=== PATIENT | female | born 1955 | race Caucasian/White ===

== ENCOUNTER 2018-09-18 20:47 | Emergency (ER) | payer OTHER ==
[2018-09-18] MEDS ORDERED: Ciprofloxacin 500 MG Tab PO ONE (21:47)
[2018-09-18] MEDS ORDERED: Phenazopyridine 95 MG Tab PO ONE (21:48)
--- NOTE | 2018-09-19 07:37 | EDM.PDOC ---
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 She had lithotripsy followed by stent placement approximately month ago. She has intermittent flank discomfort and has run out of her prescriptions for ciprofloxacin and also Pyridium (over-the- counter). he stent is to be removed 09/19/18 but her urologist on vacation so dense removal has been rescheduled for 09/26/18 at [facility]. She is with without fever, no longer has left flank pain, now has annoying 5/10 residual left lower quadrant abdominal discomfort and suprapubic discomfort. She is annoyed that she won't be getting her stent removed tomorrow, September 19. She has run out of Pyridium and Cipro and would like those prescriptions refilled until stent removed 09/26/18 she is not really requesting any pain pills has no fever or nausea or vomiting. - Related Data Allergies Allergy/AdvReac Type Severity Reaction Status Date / Time No Known Allergies Allergy Verified 09/18/18 21:01 Home Meds: Home Meds Ciprofloxacin [Cipro] 500 mg PO ASDIRECTED #14 ml 09/18/18 [Rx] FLUoxetine [PROzac] 40 mg PO DAILY 09/18/18 [History] Levothyroxine 112 mcg PO ACBREAKFAST 09/18/18 [History] Oxybutynin 10 mg PO BID 09/18/18 [History] Phenazopyridine HCl [Pyridium] 200 mg PO TID PRN #10 tablet 09/18/18 [Rx] Past Medical History Genitourinary History: Reports: UTI, Recurrent, Other (See Below) Other Genitourinary History: kidney stones Endocrine/Metabolic History: Reports: Hypothyroidism Social & Family History - Family History Family Medical History: Noncontributory - Tobacco Use Smoking Status *Q: Former Smoker Used Tobacco, but Quit: Yes Month/Year Tobacco Last Used: 240 - Caffeine Use Caffeine Use: Reports: Coffee - Recreational Drug Use Recreational Drug Use: No ED ROS GENERAL - Review of Systems Review Of Systems: ROS reveals no pertinent complaints other than HPI. : Reports: Other (She uses oxybutynin for bladder spasm) Musculoskeletal: Reports: Other (Left rotator cuff pain 1 year self managed physical therapy (she is a physical therapist). And her shoulders getting better ) ED EXAM, RENAL/ - Physical Exam Exam: See Below Text/Narrative:: Wasn't awake woman in minimal distress but uncomfortable over the presence of her stent and discouraged that she couldn't have her stent removed tomorrow Exam Limited By: No Limitations General Appearance: Alert, Mild Distress Eye Exam: Bilateral Eye: Normal Inspection Ears: Normal External Exam, Normal Canal, Normal TMs Nose: Normal Inspection, Normal Mucosa, No Blood Throat/Mouth: Normal Inspection, Normal Lips, Normal Teeth, Normal Gums, Normal Oropharynx, Normal Voice Head: Atraumatic, Normocephalic Neck: Normal Inspection, Supple, Non-Tender, Full Range of Motion Respiratory/Chest: No Respiratory Distress, Lungs Clear, Normal Breath Sounds, No Accessory Muscle Use, Chest Non-Tender Cardiovascular: Normal Peripheral Pulses, Regular Rate, Rhythm, No Edema, No Gallop, No JVD, No Murmur, No Rub GI/Abdominal: Normal Bowel Sounds, Soft, No Organomegaly, No Distention, No Abnormal Bruit, No Mass, Other (Mild left lower quadrant guarding no rebound no heel tap rebound) (Female) Exam: Deferred Rectal (Female) Exam: Deferred Extremities: Normal Inspection, Normal Range of Motion, Non-Tender, No Pedal Edema, Normal Capillary Refill Neurological: Alert, Oriented, CN II-XII Intact, Normal Cognition, Normal Gait, Normal Reflexes, No Motor/Sensory Deficits, Other Psychiatric: Normal Affect, Normal Mood Skin Exam: Warm, Dry, Intact, Normal Color Lymphatic: No Adenopathy Course - Vital Signs Last Recorded V/S: Last Vital Signs Temp 36.6 C 09/18/18 20:47 Pulse 74 09/18/18 20:47 Resp 17 09/18/18 20:47 BP 114/57 L 09/18/18 20:47 Pulse Ox 99 09/18/18 20:47 - Orders/Labs/Meds Labs: Laboratory Tests 09/18/18 09/18/18 09/18/18 Range/Units 21:08 21:50 21:50 WBC 5.8 (4.5-12.0) X10-3/uL RBC 4.16 (3.23-5.20) x10(6)uL Hgb 12.2 (11.5-15.5) g/dL Hct 35.9 (30.0-51.3) % MCV 86.3 (80-96) fL MCH 29.3 (27.7-33.6) pg MCHC 33.9 (32.2-35.4) g/dL RDW 13.8 (11.5-15.5) % Plt Count 197 (125-369) X10(3)uL MPV 8.9 (7.4-10.4) fL Neut % (Auto) 53.2 (46-82) % Lymph % (Auto) 31.2 (13-37) % [place] % (Auto) 12.1 H (4-12) % Eos % (Auto) 3 (1.0-5.0) % Baso % (Auto) 1 (0-2) % Neut # (Auto) 3.1 (1.6-8.3) # Lymph # (Auto) 1.8 (0.6-5.0) # [place] # (Auto) 0.7 (0.0-1.3) # Eos # (Auto) 0.2 (0.0-0.8) # Baso # (Auto) 0.0 (0.0-0.2) # Sodium 140 (135-145) mmol/L Potassium 3.6 (3.5-5.3) mmol/L Chloride 105 (100-110) mmol/L Carbon Dioxide 25 (21-32) mmol/L BUN 15 (7-18) mg/dL Creatinine 0.7 (0.55-1.02) mg/dL Est Cr Clr Drug Dosing 77.01 mL/min Estimated GFR (MDRD) > 60 (>60) BUN/Creatinine Ratio 21.4 H (9-20) Glucose 91 (80-116) mg/dL Calcium 8.6 (8.6-10.2) mg/dL Urine Color Yellow (YELLOW) Urine Appearance Slightly cloudy (CLEAR) Urine pH 6.0 (5.0-6.5) Ur Specific [place] 1.025 (1.010-1.025) Urine Protein 30 H (NEGATIVE) mg/dL Urine Glucose (UA) Normal (NORMAL) mg/dL Urine Ketones Negative (NEGATIVE) mg/dL Urine Occult Blood Large H (NEGATIVE) Urine Nitrite Negative (NEGATIVE) Urine Bilirubin Negative (NEGATIVE) Urine Urobilinogen Normal (NEGATIVE) mg/dL Ur Leukocyte Esterase Small H (NEGATIVE) Urine RBC 40-50 H (0-5) Urine WBC 5-10 H (0-5) Ur Squamous Epith Cells Occasional (NS,R,O) Urine Bacteria Few H (NS) Meds: Medications Discontinued Medications Generic Name Dose Route Start Last Admin Trade Name Freq PRN Reason Stop Dose Admin Ciprofloxacin 500 mg 09/18/18 21:47 09/18/18 21:53 Ciprofloxacin Hcl PO 09/18/18 21:48 500 mg ONETIME ONE Administration Phenazopyridine HCl 95 mg 09/18/18 21:48 09/18/18 21:53 Urinary Pain Relief PO 09/18/18 21:49 95 mg ONETIME ONE Administration Departure - Departure Time of Disposition: 21:15 (Left flank pain is almost gone patient most likely has passed a stone down to the lower [facility] as she has left lower quadrant abdominal discomfort. Sign of fever or vomiting. Her pain is mildly stable. She still has discomfort of a stent. And like replacement of her Cipro and Pyridium so she gets through another clinic until she has the stent removed and 09/26) Disposition: Home, Self-Care 01 Condition: Good Clinical Impression: Obstruction of left ureteropelvic junction (UPJ) due to stone, Obesity (BMI 35.0-39.9 without comorbidity) Abdominal pain Qualifiers: Abdominal location: left lower quadrant Qualified Code(s): R10.32 - Left lower quadrant pain - Discharge Information *PRESCRIPTION DRUG MONITORING PROGRAM REVIEWED*: Not Applicable *COPY OF PRESCRIPTION DRUG MONITORING REPORT IN PATIENT JIMMIE: Not Applicable Prescriptions: Ciprofloxacin [Cipro] 500 mg PO ASDIRECTED #14 ml Phenazopyridine HCl [Pyridium] 200 mg PO TID PRN #10 tablet PRN Reason: Dysuria Instructions: Urinary Tract Infection, Adult Referrals: Romulo Brown MD [Primary Care Provider] - Forms: ED Department Discharge Additional Instructions: History of a left renal stone with stents since July. Because you ran out of her Cipro I've refilled prescription so have enough medication until you see your doctor. I have prescribed pyridium to decrease burning on urination. You have a risk of having pills in your body during the "shockwave therapy"( lithotripsy) and those pills could be shattered if they are not completely absorbed. Consequently attention to your doctor's order about restricting for 1 week the use of any medications that are more than ones he has prescribed for a week before the procedure.
== END 2018-09-18 22:03 | disposition home or self-care (01) ==
LOC: FB.ED 20:47
DX: N20.1 Calculus of ureter (principal); E66.9 Obesity, unspecified; Z68.35 Body mass index [BMI] 35.0-35.9, adult; E03.9 Hypothyroidism, unspecified; Z87.891 Personal history of nicotine dependence
CPT/HCPCS: 36415; 80048; 81001; 85025; 99283; A9270-GY

== ENCOUNTER 2021-03-07 13:47 | Emergency (ER) | payer MEDICARE, BC ==
[2021-03-07] MEDS ORDERED: Acetaminophen/oxyCODONE 325-5 MG Tab PO ONE (13:48)
[2021-03-07] MEDS ORDERED: Ondansetron 4 MG Tab.DIS PO ONE (13:48)
--- NOTE | 2021-03-07 14:13 | EDM.PDOC ---
ED HPI GENERAL MEDICAL PROBLEM - General Stated Complaint: KIDNEY STONE PAIN Time Seen by Provider: 03/07/21 14:05 Source of Information: Reports: Patient History Limitations: Reports: No Limitations - History of Present Illness INITIAL COMMENTS - FREE TEXT/NARRATIVE: 65-year-old female who reports on Tuesday begin to have pain in her right mid back and her right flank that was a sharp pain and seemed to come and go. At times, the pain would completely go away and L1 night she was able sleep through the entire night. Beginning at 4 AM this morning, the pain has come back and it really has not gone away but has had a waxing and waning level of worsening through the day with pain seeming to go from her right mid back to her right flank. It is a sharp and stabbing type pain. She rates that pain as a 10/10 now. She has had no dysuria or hematuria. She has had some nausea but no vomiting. She has tried some home remedies with olive oil lemon juice with no effect. She does have a previous history of right-sided kidney stone that needed lithotripsy and stent placement in the past. She has had no fevers or chills. No weakness or dizziness. She really has not eaten or drank very much today at all. She presents to the emergency department via private vehicle with her . There are no other associated signs or symptoms. There are no other modifying factors. Onset: Other (03/03/2021) Duration: Getting Worse Location: Reports: Abdomen (Right flank), Back Quality: Reports: Sharp, Stabbing Severity: Moderate (to severe) Improves with: Reports: None Worsens with: Reports: Other (Palpation, somewhat) Context: Reports: Other (As above) Associated Symptoms: Reports: No Other Symptoms Treatments [employer]: Reports: Home Treatments Right Flank Pain Score (Numeric/FACES): 10 - Related Data Allergies Allergy/AdvReac Type Severity Reaction Status Date / Time No Known Allergies Allergy Verified 09/18/18 21:01 Home Meds: Home Meds Ciprofloxacin [Cipro] 500 mg PO ASDIRECTED #14 ml 09/18/18 [Rx] FLUoxetine [PROzac] 40 mg PO DAILY 09/18/18 [History] Levothyroxine 112 mcg PO ACBREAKFAST 09/18/18 [History] Oxybutynin 10 mg PO BID 09/18/18 [History] Phenazopyridine HCl [Pyridium] 200 mg PO TID PRN #10 tablet 09/18/18 [Rx] Acetaminophen/oxyCODONE [Percocet 325-5 MG] 1 - 2 tab PO Q6H PRN #8 tab 03/07/21 [Rx] Ondansetron [Zofran ODT] 4 mg PO Q6H PRN #8 tab.dis 03/07/21 [Rx] Tamsulosin [Tamsulosin 24 Hr] 0.4 mg PO BEDTIME #7 cap.er 03/07/21 [Rx] Past Medical History Gastrointestinal History: Reports: GERD Genitourinary History: Reports: Renal Calculus, UTI, Recurrent Endocrine/Metabolic History: Reports: Hypothyroidism - Past Surgical History Female Surgical History: Reports: Oophorectomy Male Surgical History: Reports: Lithotripsy ([facility]) Endocrine Surgical History: Reports: Thyroidectomy Musculoskeletal Surgical History: Reports: Shoulder Surgery (Left rotator cuff surgery) Social & Family History - Tobacco Use Tobacco Use Status *Q: Unknown Ever Used Tobacco (Nonsmoker) - Caffeine Use Caffeine Use: Reports: Coffee - Alcohol Use Alcohol Use History: Yes Alcohol Use Frequency: Socially - Living Situation & Occupation Living situation: Reports: ED ROS GENERAL - Review of Systems Review Of Systems: See Below Constitutional: Denies: Fever, Chills HEENT: Denies: Throat Pain, Throat Swelling Respiratory: Denies: Shortness of Breath, Cough Cardiovascular: Denies: Chest Pain, Palpitations GI/Abdominal: Reports: Abdominal Pain, Nausea. Denies: Vomiting : Reports: Flank Pain. Denies: Dysuria, Hematuria Musculoskeletal: Reports: Back Pain. Denies: Neck Pain Skin: Denies: Diaphoresis, Rash Neurological: Denies: Dizziness, Headache Psychiatric: Denies: Anxiety Hematologic/Lymphatic: Denies: Easy Bleeding, Easy Bruising ED EXAM, RENAL/ - Physical Exam Exam: See Below Exam Limited By: No Limitations General Appearance: Alert, WD/WN, Moderate Distress (Ears in pain. Nontoxic appearing.) Eye Exam: Bilateral Eye: EOMI, Normal Inspection, PERRL Ears: Hearing Grossly Normal, Other (Keloid on the left pinna) Course - Vital Signs Last Recorded V/S: Last Vital Signs Temp 36.5 C 03/07/21 13:47 Pulse 93 03/07/21 13:47 Resp 20 03/07/21 13:47 BP 138/72 03/07/21 13:47 Pulse Ox 98 03/07/21 13:47 - Orders/Labs/Meds Orders: Active Orders 24 hr Category Date Time Status Abdomen Pelvis wo Cont [CT] Stat Exams 03/07/21 14:25 Taken Peripheral IV Insertion Adult [OM.PC] Routine Oth 03/07/21 14:25 Ordered Labs: Laboratory Tests 03/07/21 03/07/21 03/07/21 Range/Units 14:36 14:50 14:50 WBC 10.3 (3.0-10.3) x10-3/uL RBC 5.08 (3.60-5.20) x10(6)uL Hgb 14.7 (11.4-15.5) g/dL Hct 43.3 (34.2-48.2) % MCV 85.2 (76.7-100.5) fL MCH 29.0 (23.9-33.9) pg MCHC 34.0 (31.9-34.8) g/dL RDW 13.8 (12.3-16.5) % Plt Count 196 (151-488) x10(3)uL MPV 8.2 (7.1-12.4) fL Neut % (Auto) 70.4 (30.8-76.2) % Lymph % (Auto) 17.6 L (18.4-52.1) % [place] % (Auto) 9.6 (4.4-15.7) % Eos % (Auto) 1.7 (0.6-8.1) % Baso % (Auto) 0.7 (0.2-1.5) % Neut # (Auto) 7.2 H (1.5-6.3) x10-3/uL Lymph # (Auto) 1.8 (1.0-4.4) x10-3/uL [place] # (Auto) 1.0 (0.3-1.0) x10-3/uL Eos # (Auto) 0.2 (0.0-0.8) x10-3/uL Baso # (Auto) 0.1 (0.0-0.1) x10-3/uL Sodium 145 (135-145) mmol/L Potassium 4.2 (3.5-5.3) mmol/L Chloride 107 (100-110) mmol/L Carbon Dioxide 28 (21-32) mmol/L BUN 20 H (7-18) mg/dL Creatinine 1.1 H (0.55-1.02) mg/dL Est Cr Clr Drug Dosing TNP Estimated GFR (MDRD) 50 L (>60) BUN/Creatinine Ratio 18.2 (9-20) Glucose 93 (80-116) mg/dL Calcium 9.1 (8.6-10.2) mg/dL C-Reactive Protein (0.5-0.9) mg/dL Urine Color Yellow (YELLOW) Urine Appearance Slightly cloudy (CLEAR) Urine pH 5.0 (5.0-6.5) Ur Specific [place] 1.030 H (1.010-1.025) Urine Protein Negative (NEGATIVE) mg/dL Urine Glucose (UA) Normal (NORMAL) mg/dL Urine Ketones 15 H (NEGATIVE) mg/dL Urine Occult Blood Trace (NEGATIVE) Urine Nitrite Negative (NEGATIVE) Urine Bilirubin Small H (NEGATIVE) Urine Urobilinogen Normal (NEGATIVE) mg/dL Ur Leukocyte Esterase Negative (NEGATIVE) Urine RBC 0-5 (0-5) Urine WBC 0-5 (0-5) Ur Squamous Epith Cells Moderate H (NS,R,O) Calcium Oxalate Crystal Moderate H (NS) Urine Bacteria Few H (NS) 03/07/21 Range/Units 14:50 WBC (3.0-10.3) x10-3/uL RBC (3.60-5.20) x10(6)uL Hgb (11.4-15.5) g/dL Hct (34.2-48.2) % MCV (76.7-100.5) fL MCH (23.9-33.9) pg MCHC (31.9-34.8) g/dL RDW (12.3-16.5) % Plt Count (151-488) x10(3)uL MPV (7.1-12.4) fL Neut % (Auto) (30.8-76.2) % Lymph % (Auto) (18.4-52.1) % [place] % (Auto) (4.4-15.7) % Eos % (Auto) (0.6-8.1) % Baso % (Auto) (0.2-1.5) % Neut # (Auto) (1.5-6.3) x10-3/uL Lymph # (Auto) (1.0-4.4) x10-3/uL [place] # (Auto) (0.3-1.0) x10-3/uL Eos # (Auto) (0.0-0.8) x10-3/uL Baso # (Auto) (0.0-0.1) x10-3/uL Sodium (135-145) mmol/L Potassium (3.5-5.3) mmol/L Chloride (100-110) mmol/L Carbon Dioxide (21-32) mmol/L BUN (7-18) mg/dL Creatinine (0.55-1.02) mg/dL Est Cr Clr Drug Dosing Estimated GFR (MDRD) (>60) BUN/Creatinine Ratio (9-20) Glucose (80-116) mg/dL Calcium (8.6-10.2) mg/dL C-Reactive Protein < 0.2 L (0.5-0.9) mg/dL Urine Color (YELLOW) Urine Appearance (CLEAR) Urine pH (5.0-6.5) Ur Specific [place] (1.010-1.025) Urine Protein (NEGATIVE) mg/dL Urine Glucose (UA) (NORMAL) mg/dL Urine Ketones (NEGATIVE) mg/dL Urine Occult Blood (NEGATIVE) Urine Nitrite (NEGATIVE) Urine Bilirubin (NEGATIVE) Urine Urobilinogen (NEGATIVE) mg/dL Ur Leukocyte Esterase (NEGATIVE) Urine RBC (0-5) Urine WBC (0-5) Ur Squamous Epith Cells (NS,R,O) Calcium Oxalate Crystal (NS) Urine Bacteria (NS) Meds: Medications Discontinued Medications Generic Name Dose Route Start Last Admin Trade Name Freq PRN Reason Stop Dose Admin Sodium Chloride 1,000 mls @ 999 mls/hr 03/07/21 14:27 03/07/21 15:13 Normal Saline IV 03/07/21 15:27 999 mls/hr .BOLUS ONE Administration Ketorolac Tromethamine 30 mg 03/07/21 16:02 03/07/21 16:11 Ketorolac 30 Mg/Ml Sdv IVPUSH 03/07/21 16:03 30 mg ONETIME ONE Administration Morphine Sulfate 4 mg 03/07/21 14:27 03/07/21 15:19 Morphine 4 Mg/Ml Vial IVPUSH 03/07/21 14:28 4 mg ONETIME ONE Administration Ondansetron HCl 4 mg 03/07/21 14:27 03/07/21 15:13 Ondansetron 4 Mg/2 Ml Sdv IVPUSH 03/07/21 14:28 4 mg ONETIME ONE Administration Sodium Chloride 10 ml 03/07/21 14:25 Sodium Chloride 0.9% 10 Ml Syringe FLUSH ASDIRECTED PRN Keep Vein Open Tamsulosin HCl 0.4 mg 03/07/21 16:02 03/07/21 16:11 Tamsulosin 0.4 Mg Cap.Er PO 03/07/21 16:03 0.4 mg ONETIME ONE Administration - Radiology Interpretation Free Text/Narrative:: CT scan of abdomen and pelvis without IV contrast showed a 2 mm calculus in the right distal ureter with mild hydronephrosis. There is a punctate nonobstructing calculus inside the right kidney. The liver. There are small hypodense lesions in the liver that are unchanged from August 2018. She was per the [facility] L radiologist. - Re-Assessments/Exams Free Text/Narrative Re-Assessment/Exam: 03/07/21 15:15: One plus of count was 10.3. Hemoglobin is 14.7. Platelet count is normal. Sodium is 145. Potassium is 4.2. Bicarbonate was 28. BUN is 20 and creatinine is 1.1. Glucose is normal. A CRP was normal. A urinalysis had 0-5 rbc's properdin filled and did not show any evidence of infection. The patient is back from CT and we are awaiting the results. She has just received her pain medication and is receiving her IV fluids. 03/07/21 16:00: The CT scan of her abdomen and pelvis showed a 2 mm calculus in the right distal ureter with mild hydronephrosis. Patient's pain is now down to a 5/10. She states is down to a dull ache and throbbing. No nausea. No vomiting. She states she actually feels hungry now. The plan will be to have her strain of her urine to monitor for stone passage. I will also place the patient on Flomax daily and give her her first dose now. I will also give her prescriptions of Percocet and Zofran that she can use for pain and nausea. She should follow- up with her primary provider. I discussed all of this with the patient and with her and they are couple with the plan for discharge. Departure - Departure Time of Disposition: 16:30 Disposition: Home, Self-Care 01 Condition: Good Clinical Impression: Renal colic on right side, Right distal ureteral calculus - Discharge Information Prescriptions: Tamsulosin [Tamsulosin 24 Hr] 0.4 mg PO BEDTIME #7 cap.er Acetaminophen/oxyCODONE [Percocet 325-5 MG] 1 - 2 tab PO Q6H PRN #8 tab PRN Reason: Moderate to severe pain Ondansetron [Zofran ODT] 4 mg PO Q6H PRN #8 tab.dis PRN Reason: Nausea/Vomiting Instructions: Renal Colic, [id number], Kidney Stones, [id number] Referrals: Romulo Brown MD [Physician] - Forms: ED Department Discharge Additional Instructions: You have a kidney stone in your right distal ureter. It is only 2 mm in size. This is something that should pass on its own. He'll also have a kidney stone within your right kidney. This should not cause any problems at this time. He also have some lesions on your liver that were present in August 2018 and have not changed since that time. Your urine showed no evidence of infection. You need to increase your fluid intake. Strain all of your urine to look for passage of the kidney stone. You will need to follow-up with your primary provider next week for recheck. Back to the emergency department for marked increase in pain, unrelenting vomiting, fever, inability to pass your urine or any other concerning signs or symptoms. Sepsis Event Note (ED) - Focused Exam Vital Signs: Vital Signs Temp Pulse Resp BP Pulse Ox 03/07/21 13:47 36.5 C 93 20 138/72 98 - My Orders Last 24 Hours: My Active Orders 03/07/21 14:25 Abdomen Pelvis wo Cont [CT] Stat Peripheral IV Insertion Adult [OM.PC] Routine - Assessment/Plan Last 24 Hours: My Active Orders 03/07/21 14:25 Abdomen Pelvis wo Cont [CT] Stat Peripheral IV Insertion Adult [OM.PC] Routine
[2021-03-07] MEDS ORDERED: Sodium Chloride 0.9% 10 ML Syringe FLUSH PRN (14:25)
[2021-03-07] MEDS ORDERED: Sodium Chloride 0.9% 1,000 ML IV ONE (14:27)
[2021-03-07] MEDS ORDERED: Ondansetron 4 MG/2 ML SDV IVPUSH ONE (14:27)
[2021-03-07] MEDS ORDERED: Morphine 4 MG/ML VIAL IVPUSH ONE (14:27)
[2021-03-07] MEDS ORDERED: Tamsulosin 0.4 MG Cap.ER PO ONE (16:02)
[2021-03-07] MEDS ORDERED: Ketorolac 30 MG/ML SDV IVPUSH ONE (16:02)
== END 2021-03-07 16:35 | disposition home or self-care (01) ==
LOC: FB.ED 13:47
DX: N13.2 Hydronephrosis with renal and ureteral calculous obstruction (principal); K21.9 Gastro-esophageal reflux disease without esophagitis; E03.9 Hypothyroidism, unspecified; Z79.899 Other long term (current) drug therapy
CPT/HCPCS: 36415; 74176; 80048; 81001; 85025; 86140; 96374; 96375; 99284; A9270; J1885; J2270; J2405; J7030

== ENCOUNTER 2021-03-10 18:48 | Emergency (ER) | payer MEDICARE, BC ==
[2021-03-10] MEDS ORDERED: Acetaminophen/oxyCODONE 325-5 MG Tab PO STA (19:05)
[2021-03-10] MEDS ORDERED: Ondansetron 4 MG Tab.DIS PO STA (19:06)
[2021-03-10] MEDS ORDERED: Sulfamethoxazole/Trimethoprim 800-160 MG Tab PO STA (19:45)
--- NOTE | 2021-03-10 19:51 | EDM.PDOC ---
ED HPI GENERAL MEDICAL PROBLEM - General Stated Complaint: BLOOD IN URINE Time Seen by Provider: 03/10/21 19:05 Source of Information: Reports: Patient History Limitations: Reports: No Limitations - History of Present Illness INITIAL COMMENTS - FREE TEXT/NARRATIVE: Patient presented to the ED because of hematuria. She had an ESWL done yesterday followed by stent placement. She is also taking keflex but doesn't think it's working. There is no associated fever, chills or flank pain. - Related Data Allergies Allergy/AdvReac Type Severity Reaction Status Date / Time seasonal, environmental Allergy Watery Eyes Uncoded 03/10/21 19:17 Home Meds: Home Meds Levothyroxine 112 mcg PO ACBREAKFAST 09/18/18 [History] Acetaminophen/oxyCODONE [Percocet 325-5 MG] 1 - 2 tab PO Q6H PRN #8 tab 03/07/21 [Rx] Ondansetron [Zofran ODT] 4 mg PO Q6H PRN #8 tab.dis 03/07/21 [Rx] Tamsulosin [Tamsulosin 24 Hr] 0.4 mg PO BEDTIME #7 cap.er 03/07/21 [Rx] DULoxetine [Cymbalta] 60 mg PO DAILY 03/10/21 [History] Sulfamethoxazole/Trimethoprim [Bactrim Ds Tablet] 1 each PO BID #14 tablet 03/10/21 [Rx] Temazepam 30 mg PO BEDTIME PRN 03/10/21 [History] Past Medical History Gastrointestinal History: Reports: GERD Genitourinary History: Reports: Renal Calculus, UTI, Recurrent Other Genitourinary History: kidney stones Endocrine/Metabolic History: Reports: Hypothyroidism - Past Surgical History Female Surgical History: Reports: Oophorectomy Male Surgical History: Reports: Lithotripsy (ESWL) Endocrine Surgical History: Reports: Thyroidectomy Musculoskeletal Surgical History: Reports: Shoulder Surgery (Left rotator cuff surgery) Social & Family History - Family History Family Medical History: No Pertinent Family History - Caffeine Use Caffeine Use: Reports: Coffee - Living Situation & Occupation Living situation: Reports: ED ROS GENERAL - Review of Systems Review Of Systems: See Below Constitutional: Reports: No Symptoms HEENT: Reports: No Symptoms Respiratory: Reports: No Symptoms Cardiovascular: Reports: No Symptoms Endocrine: Reports: No Symptoms GI/Abdominal: Reports: No Symptoms : Reports: Hematuria Musculoskeletal: Reports: No Symptoms Skin: Reports: No Symptoms ED EXAM, GENERAL - Physical Exam Exam: See Below Exam Limited By: No Limitations General Appearance: Alert, No Apparent Distress Eye Exam: Bilateral Eye: PERRL Ears: Normal External Exam, Normal Canal Nose: Normal Inspection, Normal Mucosa, No Blood Throat/Mouth: Normal Inspection, Normal Lips, Normal Teeth Head: Atraumatic, Normocephalic Neck: Normal Inspection, Supple, Non-Tender, Full Range of Motion Respiratory/Chest: No Respiratory Distress, Lungs Clear, Normal Breath Sounds, No Accessory Muscle Use, Chest Non-Tender Cardiovascular: Normal Peripheral Pulses, Regular Rate, Rhythm, No Edema, No Gallop, No JVD, No Murmur GI/Abdominal: Normal Bowel Sounds, Soft, Non-Tender, No Distention Back Exam: Normal Inspection, Full Range of Motion Extremities: Normal Inspection, Normal Range of Motion, Non-Tender Neurological: Alert, Oriented, CN II-XII Intact, Normal Cognition, Normal Gait, Normal Reflexes, No Motor/Sensory Deficits Psychiatric: Normal Affect Course - Vital Signs Text/Narrative:: Lab result was reviewed and discussed with patient Zofran ODT 4 mg PO x1 Percocet 5 mg PO x1 Last Recorded V/S: Last Vital Signs Temp 37.2 C 03/10/21 19:00 Pulse 97 03/10/21 19:00 Resp 18 03/10/21 19:00 BP 133/76 03/10/21 19:00 Pulse Ox 96 03/10/21 19:00 - Orders/Labs/Meds Labs: Laboratory Tests 03/10/21 03/10/21 Range/Units 19:15 19:15 WBC 9.9 (3.0-10.3) x10-3/uL RBC 4.39 (3.60-5.20) x10(6)uL Hgb 12.7 (11.4-15.5) g/dL Hct 38.0 (34.2-48.2) % MCV 86.7 (76.7-100.5) fL MCH 29.0 (23.9-33.9) pg MCHC 33.5 (31.9-34.8) g/dL RDW 13.8 (12.3-16.5) % Plt Count 200 (151-488) x10(3)uL MPV 8.3 (7.1-12.4) fL Neut % (Auto) 76.8 H (30.8-76.2) % Lymph % (Auto) 14.2 L (18.4-52.1) % Winkler % (Auto) 8.1 (4.4-15.7) % Eos % (Auto) 0.6 (0.6-8.1) % Baso % (Auto) 0.3 (0.2-1.5) % Neut # (Auto) 7.6 H (1.5-6.3) x10-3/uL Lymph # (Auto) 1.4 (1.0-4.4) x10-3/uL Winkler # (Auto) 0.8 (0.3-1.0) x10-3/uL Eos # (Auto) 0.1 (0.0-0.8) x10-3/uL Baso # (Auto) 0.0 (0.0-0.1) x10-3/uL Sodium 142 (135-145) mmol/L Potassium 4.4 (3.5-5.3) mmol/L Chloride 105 (100-110) mmol/L Carbon Dioxide 28 (21-32) mmol/L BUN 15 (7-18) mg/dL Creatinine 0.9 (0.55-1.02) mg/dL Est Cr Clr Drug Dosing TNP Estimated GFR (MDRD) > 60 (>60) BUN/Creatinine Ratio 16.7 (9-20) Glucose 141 H (80-116) mg/dL Calcium 9.1 (8.6-10.2) mg/dL Meds: Medications Discontinued Medications Generic Name Dose Route Start Last Admin Trade Name Freq PRN Reason Stop Dose Admin Ondansetron HCl 4 mg 03/10/21 19:06 03/10/21 19:24 Ondansetron 4 Mg Tab.Dis PO 03/10/21 19:07 4 mg NOW STA Administration Oxycodone/Acetaminophen 1 tab 03/10/21 19:05 03/10/21 19:24 Acetaminophen/Oxycodone 325-5 Mg Tab PO 03/10/21 19:06 1 tab NOW STA Administration Trimethoprim/Sulfamethoxazole 1 tab 03/10/21 19:45 03/10/21 19:55 Sulfamethoxazole/Trimethoprim 800-160 Mg Tab PO 03/10/21 19:46 1 tab NOW STA Administration Departure - Departure Time of Disposition: 19:50 Disposition: Home, Self-Care 01 Condition: Good Clinical Impression: Nephrolithiasis, Ureteral stenosis, right, UTI, Urinary tract infectious disease - Discharge Information Prescriptions: Sulfamethoxazole/Trimethoprim [Bactrim Ds Tablet] 1 each PO BID #14 tablet Instructions: Kidney Stones, [id number], Urinary Tract Infection, Adult, [id number], Laser Therapy for Kidney Stones, Care After Referrals: Ashlee Roland NP [Primary Care Provider] - Forms: ED Department Discharge Additional Instructions: Please read discharge instructions on kidney stone, UTI,Constipation Drink at least 2-4 liters of water daily Bactrim DS twice daily for 7 days Your bloody urine will eventually clear out Continue your francis medication Miralax-dissolve 2 scoops in a glass of water then drink the entire solution Magnesium citrate 1 bottle You may repeat the miralax and magnesium citrate daily until your bowel movement is normal Sepsis Event Note (ED) - Evaluation Sepsis Screening Result: No Definite Risk - Focused Exam Vital Signs: Vital Signs Temp Pulse Resp BP Pulse Ox 03/10/21 19:00 37.2 C 97 18 133/76 96
== END 2021-03-10 20:05 | disposition home or self-care (01) ==
LOC: FB.ED 18:48
DX: N39.0 Urinary tract infection, site not specified (principal); N35.92 Unspecified urethral stricture, female; N20.0 Calculus of kidney; E03.9 Hypothyroidism, unspecified; Z91.048 Other nonmedicinal substance allergy status; Z79.899 Other long term (current) drug therapy
CPT/HCPCS: 36415; 80048; 85025; 99283; A9270

== ENCOUNTER 2021-08-31 13:57 | Emergency (ER) | payer MEDICARE, BC ==
[2021-08-31] MEDS ORDERED: Lidocaine 2% Viscous Solution 15 ML UD PO ONE (13:58)
[2021-08-31] MEDS ORDERED: Sodium Chloride 0.9% 1,000 ML IV SCH (14:15)
[2021-08-31] MEDS ORDERED: Ketorolac 30 MG/ML SDV IVPUSH STA (14:15)
[2021-08-31] MEDS ORDERED: Lidocaine 2% Viscous Solution 15 ML UD PO STA (14:17)
[2021-08-31] MEDS ORDERED: Lidocaine 2% Viscous Solution 15 ML UD ONE (14:56)
== END 2021-08-31 15:30 | disposition home or self-care (01) ==
LOC: FB.ED 13:57
DX: U07.1 COVID-19 (principal); Z79.899 Other long term (current) drug therapy; Z91.048 Other nonmedicinal substance allergy status; K21.9 Gastro-esophageal reflux disease without esophagitis; E03.9 Hypothyroidism, unspecified
CPT/HCPCS: 36415; 80048; 85025; 87651-QW; 96374; 99283; 99283-25; A9270-GY; J1885; J7030; U0002

== ENCOUNTER 2021-11-09 07:24 | Day surgery (SDC) | payer MEDICARE, BC ==
[2021-11-09] MEDS ORDERED: Propofol 200 MG/20 ML SDV IV ONE (07:25)
[2021-11-09] MEDS ORDERED: Lactated Ringers 1,000 ML IV SCH (07:45)
[2021-11-09] MEDS ORDERED: Sodium Chloride 0.9% 10 ML Syringe FLUSH PRN (07:45)
== END 2021-11-09 09:51 | disposition home or self-care (01) ==
LOC: FB.SDS 07:24
PROVIDERS: ATTEND Surgery
DX: Z12.11 Encounter for screening for malignant neoplasm of colon (principal); K63.5 Polyp of colon; E78.00 Pure hypercholesterolemia, unspecified; K21.9 Gastro-esophageal reflux disease without esophagitis; E03.9 Hypothyroidism, unspecified; Z98.890 Other specified postprocedural states; Z88.5 Allergy status to narcotic agent; Z79.899 Other long term (current) drug therapy; Z87.891 Personal history of nicotine dependence; Z86.16 Personal history of COVID-19
CPT/HCPCS: 00812-QZ; 88305; J2704; J7120